=== PATIENT | male | born 1930 | race Caucasian/White ===

== ENCOUNTER 2017-07-10 16:21 | Inpatient (IN) ==
[2017-07-10] MEDS ORDERED: ONDANSETRON 4 MG/2 ML INJECTION IVP PRN (16:30)
--- NOTE | 2017-07-10 17:39 | History & Physical Report ---
<Rosie Whipple - Last Filed: 07/10/17 18:36> History of Present Illness Date: 07/10/17 Chief complaint: unresponsive HPI: Mark Coto is an 86 y/o male who had cataract extraction in the am of . Reportedly later went to [employer] to eat when he had an unresponsive episode , slumping over. A passerby started CPR and he was taken to the local ED in [place], where he received Romazicon. Labs via phone report showed WBC of 2.5. He was hypoxic and started on 15L NRB and arrangements were made for admission to [facility] CCU. En route, however, he became hypotensive with SBP of 82 and was unable to respond verbally (previously was able to answer y/n questions) . EKG was sinus with 1st deg AVB, no ST elevation/depression. He was only able to respond to painful stimuli. He was bolused about 500 mL NS and SBP improved to 104. Sats were down to 68% and the medic started bagging. On arrival he was unable to safely manage his airway and had GCS of 3. He was sedated with versed and fallon and intubated shortly after arrival. Unfortunately he lost his pulse and required ACLS, and ROSC was achieved after epi x2. After his and daughter arrived, more hx was obtained. They report that he' s been very tired and sleeping a lot and "failing" at home. He has had dizzy spells emy when he stands up and his dtr has had to stabilize him at times. Mrs. Coto states that while they were in [place] he was able to talk to her but seemed like he was breathing hard and heavy. She thought she was having an anxiety attack and tried to console him the best she could. She denies any reports of chest pain or recent illnesses. Review of Systems ROS unobtainable: due to endotracheal tube, due to mental status [facility] Medical History Updates: DM2 with neuropathy. HTN. dyslipidemia. gout. GERD. colon CA Surgical History: Rt hip hemiarthroplasty in 07/2015 with revision in 08/2015. Colon resection with appendectomy in 2007. Abd hernia repair x3 Family History: Unobtainable per pt but review of prior records showed that his father had HTN and at age 93 of old age. Mother at age 84, [place]. Brother had HTN & heart prob. - Social History Smoking status: Former smoker (quit smoking 40+ years ago) Alcohol intake frequency: does not drink Medications Home Medications Medication Instructions Recorded Confirmed Type Allopurinol 1 tab PO DAILY #0 tab 08/03/15 History Aspirin 1 tab PO DAILY #0 tab 08/03/15 History Insulin Glargine,Hum.rec.anlog 25 SQ HS #0 vial 08/03/15 History [Lantus] Omeprazole 20 mg PO ACB #0 tab 08/03/15 History Simvastatin 1 tab PO DAILY #0 08/03/15 History glipiZIDE [Glipizide] 1 tab PO BID #0 tab 08/03/15 History Famotidine 1 tab PO BID #0 tab 08/06/15 History maalox 30 ml PO Q3H PRN #0 08/06/15 History Donepezil HCl 1 tab PO HS #0 tab 08/27/15 History Allergies Allergy/AdvReac Type Severity Reaction Status Date / Time No Known Drug Allergies Allergy Unknown Unverified 08/03/15 13:43 Exam - Constitutional Present: other (unresponsive) - Routine HEENT Exam Head: Present: normocephalic Eye: Present: implant (left pupil is dilated) - Routine Neck Exam Present: supple - Routine Respiratory Exam Comments: not breathing adequately initially; on repeat exam he was bagged but had crackles to right lower lobe - Routine Cardiovascular Exam Comments: No pulse as per code blue records then was tachy - Routine Abdominal Exam Present: soft, hernia - Routine Extremities Exam Present: no edema - Routine Skin Exam Present: pallor, mottling - Routine Neurological Exam Absent: alert - Routine Psychiatric Exam Present: unable to assess Assessment and Plan (1) Respiratory failure Status: Acute (2) Cardiac arrest Status: Acute Assessment and Plan: IMPRESSION s/p code blue Resp failure requiring intubation Hypotension DM2 with neuropathy HTN dyslipidemia gout GERD colon CA PLAN Pt was intubated soon after arrival at 1741. Following intubation a pulse could not be palpated and CPR was initiated. Monitor showed VT - ACLS protocol was followed & epi was given x2. Narcan was given in the event of unintentional narcotics. Pulse was palpable after 2nd dose of epi. Sats remained low (80s) despite intubation and bagging but improved temporarily with ROSC. Tele - showed a-fib with RVR and BP gradually dropped. Add'l 500 mL NS bolus given and amiodarone was started. EKG showed a-flutter with RVR rate of [address] dep in ant-lat leads. CXR showed increased opacities emy in right lung - report from [place] was neg CXR so this could be r/t IVF (pulm edema) or trauma from compressions (hemorrhage) or infiltrate that is showing up post IVF. Hypotension persisted following IVF and rate control with amio - dopamine was ordered. Code status clarified with and dtr after ROSC - at home he is DNR but she would like for us to try one more time if pulse is lost. She does not want him to live on a breathing machine or have tube feeds (dtr was in agreement). Sats began to drop into the 60s around 1825, then soon was unable to palpate a pulse. and dtr at bedside declined further attempts at CPR/resuscitation. Critical care time x 66 min. Hospital Course Summary Disclaimer: The visit summary below is not to be considered part of the above Progress Note. Hospital Course: IMPRESSION s/p code blue Resp failure requiring intubation Hypotension DM2 with neuropathy HTN dyslipidemia gout GERD colon CA PLAN Pt was intubated soon after arrival at 1741. Following intubation a pulse could not be palpated and CPR was initiated. Monitor showed VT - ACLS protocol was followed & epi was given x2. Narcan was given in the event of unintentional narcotics. Pulse was palpable after 2nd dose of epi. Sats remained low (80s) despite intubation and bagging but improved temporarily with ROSC. Tele - showed a-fib with RVR and BP gradually dropped. Add'l 500 mL NS bolus given and amiodarone was started. EKG showed a-flutter with RVR rate of [address] dep in ant-lat leads. CXR showed increased opacities emy in right lung - report from [place] was neg CXR so this could be r/t IVF (pulm edema) or trauma from compressions (hemorrhage) or infiltrate that is showing up post IVF. Hypotension persisted following IVF and rate control with amio - dopamine was ordered. Code status clarified with and dtr after ROSC - at home he is DNR but she would like for us to try one more time if pulse is lost. She does not want him to live on a breathing machine or have tube feeds (dtr was in agreement). Sats began to drop into the 60s around 1825, then soon was unable to palpate a pulse. and dtr at bedside declined further attempts at CPR/resuscitation. Critical care time x 66 min. <Marcial Guerra Amol - Last Filed: 07/10/17 19:19> History of Present Illness Date: 07/10/17 [facility] Clinic Medical History Respiratory failure (Acute Medical) Cardiac arrest (Acute Medical) Exam Vital Signs: Pulse Rate 147 H 07/10/17 18:09 Respiratory Rate 20 07/10/17 18:09 Pulse Oximetry 77 L 07/10/17 18:09 Height/Weight/BMI: Height 1.83 m Weight 76.4 kg Body Mass Index 22.8 Results - Labs Microbiology Results: Microbiology 07/10/17 18:39 Peripheral/Iv Start Blood Culture - Preliminary Culture Initiated - Results Pending 07/10/17 18:37 Peripheral/Iv Start Blood Culture - Preliminary Culture Initiated - Results Pending - ABG Interpretation ABG results: 07/10/17 18:00 ABG pH 6.970 L* ABG pCO2 110 H* ABG pO2 116 H ABG HCO3 25 ABG Total CO2 28.7 H ABG O2 Saturation 95.0 ABG Base Excess -8.6 L Assessment and Plan (1) Respiratory failure Current visit: Yes Status: Acute (2) Cardiac arrest Current visit: Yes Status: Acute Assessment and Plan: IMPRESSION s/p code blue Resp failure requiring intubation Hypotension Afib with RVR - new onset DM2 with neuropathy HTN dyslipidemia gout GERD colon CA Have independently interviewed and examined pt. Chart reviewed. Case discussed with outlying ED provider, Dr Chavez, and my ROAD GANG SUPERVISOR. Care plan developed with my supervision; agree with above. Patient presents to ED in [place] secondary to unresponsive event at local [facility]. Patient had left cataract Sx this morning. Did well. Went out to eat with his in [place] before they went home to [place]. Was doing well. went to get some utensil and when she came back, patient was slumped over - unresponsive. Person there could not feel carotid pulse, so CPR initiated and EMS activated. Arrived to ED with pulse and BP. There was complaining of significant difficulty breathing-restless as could not breath. Lab performed largely unremarkable other than WBC low at 2.5. Trop normal. EKG showing sinus rhythm. With patient's unresponsive event and increase O2 needs, arrangements for hospitalization at [facility] CCU made. Patient transported via EMS. Enroute, BP so IVF bolus given. O2 sats decrease despite high flow O2 and ambu bagging started. Arrived in severe respiratory distress. Dr Chavez and staff from ED accompanied pt on way to CCU - Met by myself as patient wheeled through ED to CCU. Upon arrival to CCU arrangements to RSI patient made secondary to resp distress. Pt initially with some restlessness, but it spontaneously decreased. On assessing patient, no pulse found. CPR initiated and code protocol follow. Initial findings of VTACH were thought to be artifactual. Patient was given EPI x2. HR and BP improve. Tele did show afib with RVR - BP present. Amiodarone given and drip started. BP did start to decrease - IVF boluses given. Dopamine was ordered but not administered. Family reports prior to this event, patient wished DNR. Discussed about measure taken. Initially family felt another try for resuscitation would be reasonable, but when BP and O2 sats decreased further they reconsidered resuscitation attempts. Did feel further attempt would not be in his or there wishes. Discussed about continuing with supportive treatments - mech ventilation, IVF, IV pressures. Family decided against these modalities. Did feel removal of ventilatory support prudent. Order to discontinue vent give. Did have nursing provide MS and Ativan for patient comfort measure prior to cessation of ventilatory support. Hospital Course Summary Disclaimer: The visit summary below is not to be considered part of the above Progress Note.
[2017-07-10 18:13] VITALS: PULSE 147; RESP 20; O2SAT 77
[2017-07-10] MEDS ORDERED: DOPamine PREMIX 400 MG/250 ML BAG IV PRN (18:29)
[2017-07-10] MEDS ORDERED: AMIODARONE 900 MG in NS 500ml 500 ML IV SCH (18:30)
[2017-07-10 18:44] VITALS: BMI 22.8
[2017-07-10] MEDS ORDERED: MORPHINE SULFATE 2mg INJECTION IVP PRN (18:52)
--- NOTE | 2017-07-10 18:58 | Progress Note ---
Progress Note: 07/10/17 1855 BP decreased to 60's. O2 sats in the 60s despite mech ventilation with 100% Fio2. Family elected to cease supportive care. No further medications, mechanical ventilation, or resuscitative efforts. Understand that he will pass. Not in any pain or discomfort, but will have MS and Ativan available. RT notified to disconnect vent.
[2017-07-10] MEDS ORDERED: NALOXONE 0.4 MG/ML INJECTION IVP ONE (19:15)
[2017-07-10] MEDS ORDERED: MIDAZOLAM 5mg/5ml INJECTION IVP ONE (19:15)
[2017-07-10] MEDS ORDERED: ROCURONIUM 50 MG/5 ML INJECTION IVP ONE (19:15)
[2017-07-10] MEDS ORDERED: NS 1,000 ML IV ONE (19:15)
[2017-07-10] MEDS ORDERED: AMIODARONE 150mg/3ml INJECTION IV ONE (19:15)
[2017-07-10] MEDS ORDERED: EPINEPHRINE 1 MG/10 ML PFS IV ONE (19:15)
--- NOTE | 2017-07-10 19:26 | Death Note ---
Pronouncement Note - Date and Time of Date of : 07/10/17 Time of : 19:16 - PCOD Preliminary cause of : Cardiac arrest - Additional Data Confirmation of : no pulse, no respirations, no heart sounds, pupils fixed and dilated Family: at bedside Attending/PCP notified?: Yes Attending physician: Marcial Guerra MD Was code activated?: No (Initially coded at arrival. Family requested no further resuscitative effor) Autopsy requested?: No billet examiner notified?: Yes (Pt passed within 24 hours of admission)
--- NOTE | 2017-07-10 19:29 | Death Note ---
Providers - Provider Admitting clinician: Marcial Guerra Attending Physician: Marcial Guerra Pronouncing clinician: Marcial Guerra Diagnosis - Contributing Factors (1) Respiratory failure Status: Acute (2) Cardiac arrest Cause of secondary to complications of Cardiac arrhythmia Contributing factors Resp failure requiring intubation Hypotension Afib with RVR DM2 with neuropathy HTN Dyslipidemia Gout GERD colon CA Status: Acute Summary - Date and Time Date of admission: 07/10/17 17:30 Date of : 07/10/17 Time of : 19:16 - Summary Details: Pt was intubated soon after arrival at 1741. Following intubation a pulse could not be palpated and CPR was initiated. Monitor showed VT (thought to be artifact ) - ACLS protocol was followed & epi was given x2. Narcan was given in the event of unintentional narcotics. Pulse was palpable after 2nd dose of epi. Sats remained low (80s) despite intubation and bagging but improved temporarily with ROSC. Tele - showed a-fib with RVR and BP gradually dropped. Add'l 500 mL NS bolus given and amiodarone was started. EKG showed a-flutter with RVR rate of [address] dep in ant-lat leads. CXR showed increased opacities emy in right lung - report from [place] was neg CXR so this could be r/t IVF (pulm edema) or trauma from compressions (hemorrhage) or infiltrate that is showing up post IVF. Hypotension persisted following IVF and rate control with amio - dopamine was ordered. Code status clarified with and dtr after ROSC - at home he is DNR but she would like for us to try one more time if pulse is lost. She does not want him to live on a breathing machine or have tube feeds (dtr was in agreement). Sats began to drop into the 60s around 1825, then soon was unable to palpate a pulse. and dtr at bedside declined further attempts at CPR/resuscitation. Discussed about continuing with supportive [facility], IVF, IV pressures. Family decided against these modalities. Did feel removal of ventilatory support prudent. Order to discontinue vent give. Did have nursing provide MS and Ativan for patient comfort measure prior to cessation of ventilatory support. Inclusion Special Educator present for spiritual support. Prayer given. Ventilatory support stopped at 1909. Patient life functions ceased at 1916 - patient pronounced by Dr Guerra. - Additional Data Confirmation of as documented by pronouncing clinician: no pulse, no respirations, no heart sounds, pupils fixed and dilated Family: at bedside Attending/PCP notified?: Yes Attending physician: Marcial Guerra MD Was code activated?: No Autopsy requested?: No land law examiner notified?: Yes Organ bank notified?: Yes Attestation Narriative - Attestation Attestation Narrative: 07/10/17 19:34 Myself and Rosie Whipple were present in CCU with patient from time of presentation to [facility] until his passing.
--- OUTSIDE RECORDS SUMMARY | 2017-07-10 20:37 | External Medical Summary ---
:1930 Author Organization [facility]. Summary purpose CCDA Sent to [facility] Chief Complaint and Reason for Visit Admit Diagnosis 1 L THUMB LACERATION Problem list No authorized problems tracked for continuity of care are available for this visit. Encounters No authorized problems tracked for encounter diagnoses are available for this visit. Medications No medications recorded for this patient visit Allergies, adverse reactions, alerts Allergen Category Ingredient Status Reaction Severity Onset No Known Allergies No Known Allergies No Known Allergies Active Immunizations No immunizations recorded for this patient visit Relevant diagnostic tests and/or laboratory data RESULTS :31:49 Discharge Summary pt here with a lac left thum from a table saw History of procedures No procedures recorded for this patient visit. Functional status Cognitive Status Finding Observation Time Level of Consciousne Alert [id number] Oriented to Person Yes [id number]:[address] Yes [id number]:29 Oriented to Time Yes [id number]:29 Vital signs Type Value Date Respirations 18 [id number]:30 Pulse 72 60-74-839209:30 O2 Saturation 100% [id number]:30 Systolic Blood Press 139mm/HG 01-33-608837:30 Diastolic Blood Pres 86mm/HG 62-39-836043:30 Temperature (Fahr) 97.6Degrees 56-74-310697:30 Social history Type Value Smoking Status UNKNOWN IF EVER SMOKED Treatment Plan Treatment Plan at Di after xray and consult dr pizarro thumb in gauze and coban. has an appt at 10am with surgeon in [place] in the morning Hospital discharge instructions No discharge instruction text is available for this visit.
--- OUTSIDE RECORDS SUMMARY | 2017-07-10 20:37 | External Medical Summary ---
:1930 Author Organization [facility]. Summary purpose CCDA Sent to [facility] Chief Complaint and Reason for Visit Admit Diagnosis 1 FEVER; CONFUSION Problem list Condition Status Certainty Chronicity Onset .Cellulitis; Left thumb Discharged Encounters The following conditions tracked for encounter diagnoses were recorded for this visit: Finding or Diagnosis Status Certainty Chronicity Onset .Cellulitis; Left thumb Discharged Medications No medications recorded for this patient visit Allergies, adverse reactions, alerts Allergen Category Ingredient Status Reaction Severity Onset No Known Allergies No Known Allergies No Known Allergies Active Immunizations No immunizations recorded for this patient visit Relevant diagnostic tests and/or laboratory data RESULTS CBC 30-68-642872:15:00 Result Normal Range Units WBC 6.90 5.8-10.8 x103/mm3 Neutrophil % 55.1 50-70 % Lymph % 30.4 20-50 % Harlan % H 11.9 1.0-9.0 % Eosinophil % 2.3 0-4 % Basophil % 0.3 0-2 % Neutrophil # 3.80 3.0-7.0 x103/mm3 Lymph # 2.10 1.0-4.0 x103/mm3 Harlan # H 0.82 0.0-0.8 x103/mm3 Eosinophil # 0.16 0-0.5 x103/mm3 Basophil # 0.02 0-0.2 x103/mm3 RBC L 3.75 4.60-6.20 x103/mm3 HGB L 11.6 14.0-18.0 g/dl HCT L 35.5 42.0-52.0 % MCV H 94.7 80-94 FL MCH 30.9 27.0-31.0 pg MCHC 32.7 32.0-36.0 g/dl RDW 14.2 12-15 % Platelet 157 150-400 x103/mm3 MPV H 10.8 6.0-10.0 FL [id number]:10:00 Result Normal Range Units WBC 8.76 5.8-10.8 x103/mm3 Neutrophil % 59.7 50-70 % Lymph % 24.8 20-50 % Harlan % H 14.6 1.0-9.0 % Eosinophil % 0.7 0-4 % Basophil % 0.2 0-2 % Neutrophil # 5.23 3.0-7.0 x103/mm3 Lymph # 2.17 1.0-4.0 x103/mm3 Harlan # H 1.28 0.0-0.8 x103/mm3 Eosinophil # 0.06 0-0.5 x103/mm3 Basophil # 0.02 0-0.2 x103/mm3 RBC L 3.81 4.60-6.20 x103/mm3 HGB L 11.6 14.0-18.0 g/dl HCT L 35.6 42.0-52.0 % MCV 93.4 80-94 FL MCH 30.4 27.0-31.0 pg MCHC 32.6 32.0-36.0 g/dl RDW 13.9 12-15 % Platelet 156 150-400 x103/mm3 MPV H 11.4 6.0-10.0 FL [id number]:59:00 Result Normal Range Units WBC H 11.10 5.8-10.8 x103/mm3 Neutrophil % 69.8 50-70 % Lymph % L 17.6 20-50 % Harlan % H 12.0 1.0-9.0 % Eosinophil % 0.4 0-4 % Basophil % 0.2 0-2 % Neutrophil # H 7.76 3.0-7.0 x103/mm3 Lymph # 1.95 1.0-4.0 x103/mm3 Harlan # H 1.33 0.0-0.8 x103/mm3 Eosinophil # 0.04 0-0.5 x103/mm3 Basophil # 0.02 0-0.2 x103/mm3 RBC L 4.05 4.60-6.20 x103/mm3 HGB L 12.4 14.0-18.0 g/dl HCT L 37.7 42.0-52.0 % MCV 93.1 80-94 FL MCH 30.6 27.0-31.0 pg MCHC 32.9 32.0-36.0 g/dl RDW 14.0 12-15 % Platelet 171 150-400 x103/mm3 MPV H 11.4 6.0-10.0 FL Urinalysis :50:00 Result Normal Range Units Site VOID Color Yellow Urine Appearance Clear Specific Franklin 1.015 1.005-1.030 pH 7.0 5.0-9.0 Protein AB 1+ Negative Glucose Negative Negative Ketones Negative Negative Bilirubin Negative Negative Blood AB 2+ Negative Nitrite Negative Negative Urobilinogen H 2.0 0.20 mg/dl Leukocyte Negative Negative Chemistry Group :15:00 Result Normal Range Units Sodium 140 134-145 mmol/L Potassium 3.8 3.6-5.0 mmol/L Chloride 104 98-107 mmol/L CO2 28 22-30 mmol/L Glucose 100 75-110 mg/dl BUN 14 9-20 mg/dl Creatinine L .75 0.8-1.7 mg/dl eGFR 99 ml/min. Calcium 8.7 8.4-10.2 mg/dl :10:00 Result Normal Range Units Sodium 137 134-145 mmol/L Potassium 3.6 3.6-5.0 mmol/L Chloride 102 98-107 mmol/L CO2 26 22-30 mmol/L Glucose H 192 75-110 mg/dl BUN 16 9-20 mg/dl Creatinine L .71 0.8-1.7 mg/dl eGFR 106 ml/min. Calcium 8.5 8.4-10.2 mg/dl :59:00 Result Normal Range Units Sodium 136 134-145 mmol/L Potassium 3.8 3.6-5.0 mmol/L Chloride 100 98-107 mmol/L CO2 26 22-30 mmol/L Glucose H 200 75-110 mg/dl BUN 19 9-20 mg/dl Creatinine L .79 0.8-1.7 mg/dl eGFR 93 ml/min. Total Protein 6.7 6.3-8.2 g/dl Albumin L 3.3 3.5-5.0 g/dl Calcium 8.7 8.4-10.2 mg/dl Alk Phos 97 38-126 U/L AST 19 14-36 U/L ALT 21 11-66 U/L T Bili 1.0 0.2-1.3 mg/dl A/G Ratio 1.0 Ratio Reference Lab Group :59:00 Result Normal Range Units Vancomycin Trough 8.7 5.0-10.0 ug/mL Trough vancomycin concentrations of 15-20 mcg/mL are recommended for complicated infections such as bacteremia, osteomyelitis, endocarditis, meningitis, and hospital acquired pneumonia. Vancomycin Trough performed at [facility], [address] [place] [address] Foil Operator Ernesto Rodas DO [id number]:10:00 Result Normal Range Units Culture Blood Source See Comment Result Amended on 2016-12-04 at 12:19:19. Previous status was FR. Test Culture Blood Source with result ofSee Comment was originally reported asBLOOD 1 and was changed on 11/29/2016 12:16 by AMS Comment deleted 12/04/2016 12:17 by [facility] : .Site: Received : 11/28/16 18:08 .Order#: [id number] Blood Culture PRELIM 11/29/16 12:15 F .No growth after 12 hours incubation. Nursing unit will be . called if growth is detected. .- .F: Performed at: [facility], [address] [place] [address], JONAS FOR RESULTS: * - NEW RESULT - RESULT WAS MODIFIED AFTER FINAL STATUS SET [place] [address] Foil Operator Ernesto Rodas DO .Site: Received : 11/28/16 18:08 .Order#: [id number] Blood Culture FINAL 12/04/16 12:15 F .No growth after 5 days of incubation. .F: Performed at: [facility], [address] [place] [address], JONAS FOR RESULTS: * - NEW RESULT - RESULT WAS MODIFIED AFTER FINAL STATUS SET [place] [address] Foil Operator Ernesto Rodas DO Test Culture Blood Source with result ofSee Comment was originally reported asSee Comment and was changed on 12/04/2016 12:17 by [facility] Culture Blood See Comment Result Amended on 2016-12-04 at 12:19:19. Previous status was FR. Test Culture Blood with result ofSee Comment was originally reported as See Comment and was changed on 12/04/2016 12:17 by [facility] [id number]:50:00 Result Normal Range Units Culture Blood Source See Comment Result Amended on 2016-12-04 at 12:18:18. Previous status was FR. Test Culture Blood Source with result ofSee Comment was originally reported asBLOOD 2 and was changed on 11/29/2016 12:16 by AMS Comment deleted 12/04/2016 12:16 by AMS : .Site: Received : 11/28/16 18:08 .Order#: [id number] Blood Culture PRELIM 11/29/16 12:15 F .No growth after 12 hours incubation. Nursing unit will be . called if growth is detected. .- .F: [facility]formed [facility]: [facility], [address] [place] [address], JONAS FOR RESULTS: * - NEW RESULT - RESULT WAS MODIFIED AFTER FINAL STATUS SET [place] [address] Foil Operator Ernesto Rodas DO .Site: Received : 11/28/16 18:08 .Order#: [id number] Blood Culture FINAL 12/04/16 12:15 F .No growth after 5 days of incubation. .F: [facility]formed at: [facility] [address], [facility] FOR RESULTS: * - NEW RESULT - RESULT WAS MODIFIED AFTER FINAL STATUS SET [place] [address] Foil Operator Ernesto Rodas DO Test Culture Blood Source with result ofSee Comment was originally reported asSee Comment and was changed on 12/04/2016 12:16 by AMS Culture Blood See Comment Result Amended on 2016-12-04 at 12:18:18. Previous status was FR. Test Culture Blood with result ofSee Comment was originally reported as See Comment and was changed on 12/04/2016 12:16 by AMS Urinalysis with Microscopic [id number]:50:00 Result Normal Range Units Site VOID Color Yellow Urine Appearance Clear Specific Franklin 1.015 1.005-1.030 pH 7.0 5.0-9.0 Protein AB 1+ Negative Glucose Negative Negative Ketones Negative Negative Bilirubin Negative Negative Blood AB 2+ Negative Nitrite Negative Negative Urobilinogen H 2.0 0.20 mg/dl Leukocyte Negative Negative History of procedures No procedures recorded for this patient visit. Functional status Functional Status Finding Observation Time Dexterity Right-handed :51 Impaired Extremity o Yes (Please Specify) :51 Comment: Left hand in cast Weight Bearing Statu Full 49-74-071277:53 Transferring/Ambulat Needs Assistance 09-21-254819:51 Bathing Needs Assistance :51 Dressing Needs Assistance :51 Able to Turn Self in Independent :51 Cognitive Status Finding Observation Time Level of Consciousne Alert :40 Oriented to Person Yes :[address] Yes :40 Oriented to Time Yes :40 Eyes - TINO Yes 15-73-185349:20 Vital signs Type Value Date Respirations 16 57-54-694946:52 Pulse 58 :52 O2 Saturation 96% 61-48-125902:52 Systolic Blood Press 110mm/HG 48-31-542809:52 Diastolic Blood Pres 72mm/HG 93-87-858872:52 Temperature (Fahr) 98.5Degrees 99-97-255719:52 Height 73in :15 Weight 173.8LB 38-87-908201:15 Social history Type Value Smoking Status FORMER SMOKER Treatment Plan No treatment plan text is available for this visit. Hospital discharge instructions No discharge instruction text is available for this visit.
--- OUTSIDE RECORDS SUMMARY | 2017-07-10 20:37 | External Medical Summary | Summary of Care ---
:1930 Author Name Azucena Marquez M.D. Address [address], [place] [id number] Care Team Providers Name Role Phone Connie San, JEANNETTE,, F Pa Unavailable Unavailable Álvaro King M.D. Unavailable Unavailable Azucena Marquez M.D. 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 Refills: 0 Started 13-Jun-2014 ActiveHydrocortisone 2.5 % External Lotion apply to affected areas on face and ears twice daily as needed Quantity: 1 Refills: 2 Eloy Marquez M.D. Started 13-Jun-2014 Onhcrb45 ML Bottle Inreliyd-Hbabsjetz-SX 3.5-93477-7 Otic Suspension INSTILL 3 DROP 3 times daily Quantity: 1 Refills: 0 Álvaro King M.D. Started 01-Jul-2013 Krlkwr90 ML Bottle Fish Oil 1000 MG Oral Capsule Refills: 0 Pa Rosales M.D., FACSmita, Started 21-May-2008 ActiveSaw [place] 450 MG Oral Capsule TAKE DIRECTED. Refills: 0 Pa Rosales M.D., FACP, Started 21-May-2008 ActiveAspir-81 81 MG Oral Tablet Delayed Release Refills: 0 Pa Rosales M.D., FACP, Started 21-May-2008 ActiveOmeprazole 20 MG Oral Capsule Delayed Release Refills: 0 Pa Rosales M.D., FACP, Started 21-May-2008 ActiveSimvastatin 20 MG Oral Tablet Refills: 0 Pa Rosales M.D., FACP, Started 21-May-2008 ActiveAllopurinol 100 MG Oral Tablet Refills: 0 Active Allergies and Adverse Reactions Name Dates Details No Known Allergies Status: Active Past Medical History Name Dates Details History of diabetes mellitus (V12.29, Z86.39) Status: Resolved History of hypertension (V12.59, Z86.79) Status: Resolved History of Reported Cholesterol Level Was High Status: Resolved Procedures Procedure Dates Details History of Hernia Repair History of Cystoscopy With Ureteral Catheterization Completed:24-May-2012 Procedures not documented Immunization Name Dates Details Immunizations not documented Family History Unknown Family Member Name Dates Details Family history of Heart Disease (V17.49) Comments: Family History Status: Active Social History Name Dates Details Smoking StatusNever smoker Vital Signs Date Test Result Details No Known Vitals to report Results Date Description Value Details Results not documented Plan of Care Planned Observations Name Dates Details Planned Goals not documented Goal Planned Encounters Appointment; Provider: Sha Rider On 24-May-2012 13:30 Appointment; Provider: Pa Rosales On 20-Nov-2008 13:15 Appointment; Provider: Pa Rosales On 20-May-2008 15:45 Instructions Instructions not documented Encounters Appointment; Eloy Marquez On 13-Jun-2014 Encounter Diagnosis: Problem not documented 10:30 Appointment; Bianca Schmidt On 17-Jul-2013 Encounter Diagnosis: Problem not documented 15:30 Appointment; Álvaro King On 01-Jul-2013 Encounter Diagnosis: Problem not documented 09:00 Appointment; Álvaro King On 17-Jun-2013 Encounter Diagnosis: Problem not documented 12:00 Appointment; Álvaro King On 20-May-2013 Encounter Diagnosis: Problem not documented 15:00 Appointment; Yoel Melvin On 20-May-2013 Encounter Diagnosis: Problem not documented 14:45
--- OUTSIDE RECORDS SUMMARY | 2017-07-10 20:37 | External Medical Summary ---
:1930 Author Organization [facility]. Summary purpose CCDA Sent to [facility] Chief Complaint and Reason for Visit No authorized Reason for Visit (Admitting Diagnosis) is available for this visit. Problem list Condition Status Certainty Chronicity Onset .Cellulitis; L thumb Discharged Encounters The following conditions tracked for encounter diagnoses were recorded for this visit: Finding or Diagnosis Status Certainty Chronicity Onset .Cellulitis; L thumb Discharged Medications Discharge Medications Status Medication Directions Current acetaminophen (TYLENOL) 325 mg: TABLET 1-2 TAB oral EVERY FOUR HOURS NEEDED for PAIN OR FEVER Current donepezil (ARICEPT) 10 mg: TABLET 10 MG oral HS Current GLIPIZIDE 5 mg: TABLET 10 MG oral BID Current insulin glargine (LANTUS) 100 unit/mL: 25 UNIT subcutaneous Give SUBQ HS VIAL Current omeprazole (PRILOSEC): Cap DR 20 MG oral BEFORE BREAKFAST Current polyethylene glycol 3350 (MIRALAX) 17 17 GM oral EVERY MORNING gram: POWD PACK Current saw palmet[place] oral 1 tab(s) oral BID Current simvastatin 40 mg tablet 0.5 tab(s) oral HS Stopped acetaminophen 325 mg tablet 2 tab(s) oral EVERY FOUR HOURS NEEDED Stopped Aricept 10 mg tablet 1 tab(s) oral HS Stopped cephALEXin 500 mg capsule 1 capsule(s) oral BID Stopped docusate sodium 100 mg capsule 1 capsule(s) oral BID NEEDED Stopped glipiZIDE 10 mg tablet 1 tab(s) oral BID Stopped Lantus 100 unit/mL subcutaneous 23 unit(s) subcutaneous BID solution 23-25 UNITS Stopped omeprazole 20 mg capsule,delayed 1 tab(s) oral DAILY release Allergies, adverse reactions, alerts Allergen Category Ingredient Status Reaction Severity Onset No Known Allergies No Known Allergies No Known Allergies Active Immunizations No immunizations recorded for this patient visit Relevant diagnostic tests and/or laboratory data RESULTS 64-48-596018:09:23 Discharge Summary d/c home on Bactrim. Sees Dr Mcmanus next Monday CBC 38-68-923630:05:00 Result Normal Range Units WBC L 5.19 5.8-10.8 x103/mm3 Neutrophil % L 49.2 50-70 % Lymph % 35.3 20-50 % [place] % 8.9 1.0-9.0 % Eosinophil % H 6.2 0-4 % Basophil % 0.4 0-2 % Neutrophil # L 2.56 3.0-7.0 x103/mm3 Lymph # 1.83 1.0-4.0 x103/mm3 [place] # 0.46 0.0-0.8 x103/mm3 Eosinophil # 0.32 0-0.5 x103/mm3 Basophil # 0.02 0-0.2 x103/mm3 RBC L 3.84 4.60-6.20 x103/mm3 HGB L 11.8 14.0-18.0 g/dl HCT L 36.2 42.0-52.0 % MCV H 94.3 80-94 FL MCH 30.7 27.0-31.0 pg MCHC 32.6 32.0-36.0 g/dl RDW 13.5 12-15 % Platelet 210 150-400 x103/mm3 MPV H 10.4 6.0-10.0 FL Chemistry Group 81-47-838514:05:00 Result Normal Range Units Sodium 141 134-145 mmol/L Potassium 3.9 3.6-5.0 mmol/L Chloride 105 98-107 mmol/L CO2 26 22-30 mmol/L Glucose H 169 75-110 mg/dl BUN 17 9-20 mg/dl Creatinine .83 0.8-1.7 mg/dl eGFR 88 ml/min. Calcium 8.4 8.4-10.2 mg/dl History of procedures No procedures recorded for this patient visit. Functional status Functional Status Finding Observation Time Dexterity Right-handed :05 Impaired Extremity o Yes (Please Specify) :05 Weight Bearing Statu Full :45 Transferring/Ambulat Needs Assistance 40-13-405468:05 Bathing Needs Assistance :05 Dressing Needs Assistance :05 Able to Turn Self in Independent :05 Cognitive Status Finding Observation Time Level of Consciousne Alert :53 Oriented to Person Yes 39-67-133727:[address] Yes 75-34-502499:53 Oriented to Time Yes :53 Eyes - TINO Yes :53 Vital signs Type Value Date Respirations 18 :01 Pulse 61 :01 O2 Saturation 96% :01 Systolic Blood Press 115mm/HG :01 Diastolic Blood Pres 78mm/HG :01 Temperature (Fahr) 98.0Degrees 18-10-269429:33 Social history Type Value Smoking Status FORMER SMOKER Treatment Plan Treatment Plan at plan to continuie on Bactrim po, follow up with dr mcmanus and patricia in 1-2 weeks Hospital discharge instructions Diagnosis cellulitis Diet no restriction Activity Level no restrictions Personal Items Retur none Med Dispensed by Pro script for Bactrim given Flu Vaccine Given Current/Not Needed Follow up with jdr Appointment Date and 1-2 weeks Other Instructions return or call for any return, increased or new symptoms such as fever, worsening sympotms
--- OUTSIDE RECORDS SUMMARY | 2017-07-10 20:38 | External Medical Summary | Continuity of Care Document ---
:1930 Author Organization [facility] Support Name Relationship Address Phone [facility] Obdulio Unavailable [address] [place] [address] BANDAR CUELLO Unavailable [address] Unavailable [address] [place] [address] Insurance Providers Payer Name Policy Number Subscriber Name Relationship Medicare A And B [id number] Eloisa Cuello 18 Self / Same As Patient Blue Cross [facility] Supp [id number] Eloisa Cuello 18 Self / Same As Patient Advance Directives Directive Response Recorded Date/Time Advanced Directives Unknown 08/03/15 10:18am Problems Active Problems Medical Problem Onset Date Status Fracture of femoral neck, right, closed ~08/01/2015 Acute Medications Current Home Medications Medication Dose Units Route Directions Days/Qty Instructions Start Date Omeprazole 10 Mg Unknown Dose ORAL Daily 08/03/15 Glipizide Unknown Dose ORAL Twice A Day 08/03/15 (Glucotrol) 5 Mg Donepezil Hcl 5 Mg ORAL Daily 08/03/15 (Aricept) 5 Mg Simvastatin Unknown Dose ORAL Daily 08/03/15 (Zocor) 5 Mg Saw [place] Unknown Dose ORAL Twice A Day 08/03/15 Fruit 450 Mg Allopurinol 100 Unknown Dose ORAL Daily 08/03/15 Mg Aspirin 81 Mg 81 Mg ORAL Daily 08/03/15 Social History No social history. Hospital Discharge Instructions No hospital discharge instructions. Plan of Care Prescriptions See Medication Section Functional Status No functional status results. Allergies, Adverse Reactions, Alerts No known allergies. Immunizations Name Given Type Status Date Influenza Vaccine Received if Current 06/18/15 Historical Historical Vital Signs No known vital signs results. Results No known relevant diagnostic tests, laboratory data and/or discharge summary. Procedures No known history of procedures. Encounters Encounter Location Arrival/Admit Date Discharge/Depart Date Attending Provider Registered [place] 12/16/15 8:56am [facility]
--- OUTSIDE RECORDS SUMMARY | 2017-07-10 20:38 | External Medical Summary | Continuity of Care Document ---
:1930 Author Organization [facility] Care Team Providers Name Role Phone Malka Obdulio Unavailable Unavailable Insurance Providers Payer Name Policy Number Subscriber Name Relationship Medicare A And B [id number] Eloisa Coto 18 Self / Same As Patient Blue Cross [facility] Supp [id number] Eloisa Coto 18 Self / Same As Patient Advance Directives Directive Response Recorded Date/Time Advanced Directives Unknown 08/03/15 10:18am Chief Complaint and Reason for Visit Chief Complaint Pain Reason for Visit [id number] Problems Active Problems Medical Problem Onset Date [...] ORAL Daily 08/03/15 (Zocor) 5 Mg Saw [place] Unknown Dose ORAL Twice A Day 08/03/15 Fruit 450 Mg Allopurinol 100 Unknown Dose ORAL Daily 08/03/15 Mg Aspirin 81 Mg 81 Mg ORAL Daily 08/03/15 Social History Query Response Start Date Stop Date Smoking Status Former smoker Hospital Discharge Instructions No hospital discharge instructions. Plan of Care Discharge Date 08/03/15 12:58pm Disposition 02 XFER SHT-TRM HOSP - ACUTE Condition at Discharge Transfer Instructions/Education Provided Open Reduction and Internal Fixation of a Hip Fracture (ED) Prescriptions See Medication Section Referrals Obdulio Ace - Additional Instructions/Education Transfer to [facility] Some of your test results may not be complete prior to your leaving the Emergency Department. The Emergency Department is not authorized to give test results over the phone. Please contact the doctor's office listed in this packet of information for your final results. Follow up with your primary care physician or return to the Emergency Department for worsening or worrisome symptoms. * Emergency Department phone number: [phone], x [phone]* MEDICAL RECORD If you need copies of your X-rays, call [phone]. If you need copies of your medical record, including lab results, a signed authorization for release of records will be required. A telephone call for release of Health Information is not allowed. BILLING Billing can sometimes be confusing and frustrating. To help avoid confusion in the future, please take a moment to acquaint yourself with the billing parties for services. SERVICE BILLING DEMOCRAT Emergency Room Services [facility] Physician Services [facility] X-rays [facility] Patients will receive bills for services from the appropriate provider. If you have any questions about your [facility] bill, our staff will be happy to assist you. Please call [phone], and ask for the billing department. THANK YOU for choosing [facility] as your emergency care provider! Care Plan and Goals Transfer to [facility] for Ortho Functional Status No functional status results. Allergies, Adverse Reactions, Alerts No known allergies. Immunizations Name Given Type Status Date Influenza Vaccine Received if Current 06/18/15 Historical Historical Vital Signs Acute Vital Signs Vital Response Date/Time Temperature (Fahrenheit) 98.2 08/03/2015 3:48pm Pulse 65 bpm 08/03/2015 3:48pm Respirations 16 08/03/2015 3:48pm Height 6 ft 0 in Weight 175 lb Body Mass Index 23.0 kg/m^2 Results Laboratory Results Test Name Result Units Flags Reference Collection Result Comments Date/Time Date/Time White Blood Count 9.97 10^3uL 4.0-11.0 08/03/2015 08/03/2015 11:19am 11:26am Red Blood Count 4.61 10^6uL 4.50-5.50 08/03/2015 08/03/2015 11:19am 11:26am Hemoglobin 14.6 g/dL 13.5-17.0 08/03/2015 08/03/2015 11:19am 11:26am Hematocrit 42.90 % 39.00-50.00 08/03/2015 08/03/2015 11:19am 11:26am Mean Corpuscular 93 FL 80-100 08/03/2015 08/03/2015 Volume 11:19am 11:26am Mean Corpuscular 31.7 PG 26.0-34.0 08/03/2015 08/03/2015 Hemoglobin 11:19am 11:26am Mean Corpuscular 34.0 g/dL 31.0-37.0 08/03/2015 08/03/2015 Hemoglobin Concent 11:19am 11:26am Red Cell 13.5 % 11.8-15.6 08/03/2015 08/03/2015 Distribution Width 11:19am 11:26am Platelet Count 164 10^3uL 150-450 08/03/2015 08/03/2015 11:19am 11:26am Mean Platelet 10.3 FL H 6.0-9.5 08/03/2015 08/03/2015 Volume 11:19am 11:26am Neutrophils (%) 68 % H 51-67 08/03/2015 08/03/2015 (Auto) 11:19am 11:26am Lymphocytes (%) 18 % L 20-46 08/03/2015 08/03/2015 (Auto) 11:19am 11:26am Monocytes (%) 9 % 3-11 08/03/2015 08/03/2015 (Auto) 11:19am 11:26am Eosinophils (%) 5 % H 0-4 08/03/2015 08/03/2015 (Auto) 11:19am 11:26am Basophils (%) 0 % 0-2 08/03/2015 08/03/2015 (Auto) 11:19am 11:26am Neutrophils # 6.8 X10^3 08/03/2015 08/03/2015 (Auto) 11:19am 11:26am Lymphocytes # 1.8 X10^3 08/03/2015 08/03/2015 (Auto) 11:19am 11:26am Monocytes # (Auto) 0.9 X10^3 08/03/2015 08/03/2015 11:19am 11:26am Eosinophils # 0.5 10^3uL 08/03/2015 08/03/2015 (Auto) 11:19am 11:26am Basophils # (Auto) 0.0 10^3uL 08/03/2015 08/03/2015 11:19am 11:26am Prothrombin Time 12.9 SEC 11.9-14.2 08/03/2015 08/03/2015 11:19am 12:10pm Prothromb Time 1.0 0.8-1.4 08/03/2015 08/03/2015 International Ratio 11:19am 12:10pm Sodium Level 143 mmol/L 135-150 08/03/2015 08/03/2015 11:19am 12:09pm Potassium Level 4.1 mmol/L 3.5-5.1 08/03/2015 08/03/2015 11:19am 12:09pm Chloride Level 103 mmol/L 98-108 08/03/2015 08/03/2015 11:19am 12:09pm Carbon Dioxide 30 mmol/L H 22-29 08/03/2015 08/03/2015 Level 11:19am 12:09pm Anion Gap 14.0 MEQ/L 3-15 08/03/2015 08/03/2015 11:19am 12:09pm Blood Urea Nitrogen 20 mg/dL H 7-18 08/03/2015 08/03/2015 11:19am 12:09pm Creatinine 0.85 mg/dL 0.8-1.5 08/03/2015 08/03/2015 11:19am 12:09pm BUN/Creatinine 24 H 10-20 08/03/2015 08/03/2015 Ratio 11:19am 12:09pm Estimat Glomerular 104.2 08/03/2015 08/03/2015 Filtration Rate 11:19am 12:09pm Estimated GFR 86.1 08/03/2015 08/03/2015 (Non- 11:19am 12:09pm [place] Glucose Level 198 mg/dL H 70-110 08/03/2015 08/03/2015 11:19am 12:09pm Calculated 284 mosm/L 280-300 08/03/2015 08/03/2015 Osmolality 11:19am 12:09pm Calcium Level 9.5 mg/dL 8.8-10.8 08/03/2015 08/03/2015 11:19am 12:09pm Calcium/Ionized 4.3 mg/dL 3.8-4.6 08/03/2015 08/03/2015 Calcium Ratio 11:19am 12:09pm Total Bilirubin 0.7 mg/dL 0.1-1.0 08/03/2015 08/03/2015 11:19am 12:09pm Alkaline 88 U/L 38-126 08/03/2015 08/03/2015 Phosphatase 11:19am 12:09pm Aspartate Amino 20 U/L 15-37 08/03/2015 08/03/2015 Transf (AST/SGOT) 11:19am 12:09pm Alanine 29 U/L L 30-65 08/03/2015 08/03/2015 Aminotransferase 11:19am 12:09pm (ALT/SGPT) Total Protein 6.9 g/dL 6.4-8.5 08/03/2015 08/03/2015 11:19am 12:09pm Albumin 3.8 g/dL 3.4-5.0 08/03/2015 08/03/2015 11:19am 12:09pm Albumin/Globulin 1.225 1.1-1.8 08/03/2015 08/03/2015 Ratio 11:19am 12:09pm Procedures No known history of procedures. Encounters Encounter Location Arrival/Admit Date Discharge/Depart Date Attending Provider Departed [place] 08/03/15 10:16am 08/03/15 12:58pm [facility], Emergency Room [facility] MIKO Hernandez DO Registered [place] 08/03/15 9:50am [facility] MIKO Hernandez DO Recent Diagnosis
--- NOTE | 2017-07-11 08:31 | XRay Report ---
Indication: Hypoxia PROCEDURE: XR chest 1V: Encounter: Initial Comparison: 08/26/2015 Findings: Endotracheal tube in place with the tip projecting over the proximal right mainstem bronchus. Hazy airspace consolidation in both lungs, greatest in the left upper and right lower lobes. No pneumothorax seen on this portable supine view. Possible small left effusion. Heart size and mediastinal contours are within normal limits. Impression: 1. Endotracheal tube tip projects over the proximal right mainstem bronchus. Recommend retraction by 2.5 cm. Clinical service was aware of this finding at the time of this dictation. 2. Bilateral airspace disease could represent edema, pneumonia or aspiration. There is a preliminary report by virtual radiologic. .
== END 2017-07-10 19:16 | disposition expired | DRG 296 ==
LOC: CCU
PROVIDERS: ADMIT Hospitalist; ATTEND Hospitalist